=== PATIENT | male | born 1955 | race Caucasian/White ===

== ENCOUNTER → 2019-10-01 15:10 | Outpatient (CLI) | payer MEDICARE, MEDICAID, SELFPAY ==
[2019-10-02 12:24] LABS: Basophils # 0.1 K/mm3 (0-0.2); Basophils % 0.6 % (0.1-2.0); Eosinophils # 0.1 K/mm3 (0.0-0.4); Eosinophils % 0.9 % (0.1-12.0); Hematocrit 49.1 % (42.0-52.0); Lymphocytes # 4.1 K/mm3 (0.7-4.5); Lymphocytes % 51.5 % (10-50); Mean Corpuscular HGB Conc 32.5 g/dL (31.8-35.4); Mean Corpuscular Hemoglobin 33.1 pg (27.0-31.2); Mean Corpuscular Volume 102.1 fl (80-94); Mean Platelet Volume 11.1 fl (7.4-10.4); Monocytes # 0.4 K/mm3 (0.1-1.0); Monocytes % 5.6 % (1.7-9.3); Neutrophils # 3.3 K/mm3 (1.8-7.8); Neutrophils % 41.5 % (37.0-80.0); Platelet Count 133 K/mm3 (142-424); Red Blood Count 4.81 M/mm3 (4.60-6.20); Red Cell Distribution Width 14.3 % (11.5-17.5); White Blood Count 7.9 K/mm3 (4.8-10.8)
[2019-10-02 12:30] LABS: MANUAL DIFFERENTIAL MANUAL DIFFERENTIAL (MANUAL DIFF)
[2019-10-02 12:40] LABS: Chol/HDL Ratio 7.1 (1-3.5); Cholesterol 234 mg/dl (140-200); HDL Cholesterol 33 mg/dl (40-60)
[2019-10-02 12:47] LABS: Triglycerides 619 mg/dl (30-150)
[2019-10-02 12:50] LABS: Direct LDL Cholesterol 112.28 mg/dL (100-129)
[2019-10-02 18:05] LABS: Eosinophils % 1 % (0-3); Lymphocytes % 58 % (10-50); Monocytes % 8 % (2-9); Neutrophils % 33 % (42-76); Total Cells Counted 100
[2019-10-02 18:06] LABS: Macrocytosis 1+; Platelet Estimate Slight Decrease
== END ==
PROVIDERS: Visit Provider Family Medicine
DX: E11.9 Type 2 diabetes mellitus without complications (principal); Z79.84 Long term (current) use of oral hypoglycemic drugs
CPT/HCPCS: 80061; 85007; 85025

== ENCOUNTER → 2020-01-18 13:20 | Outpatient (CLI) | payer MEDICARE, MEDICAID, SELFPAY ==
[2020-01-18 14:50] LABS: Basophils % 0.5 % (0.1-2.0); Eosinophils # 0.1 K/mm3 (0.0-0.4); Eosinophils % 1.5 % (0.1-12.0); Hematocrit 44.3 % (42.0-52.0); Hemoglobin 13.9 g/dL (14.1-18.0); Lymphocytes # 2.8 K/mm3 (0.7-4.5); Lymphocytes % 43.1 % (10-50); Mean Corpuscular HGB Conc 31.5 g/dL (31.8-35.4); Mean Corpuscular Hemoglobin 31.7 pg (27.0-31.2); Mean Corpuscular Volume 100.7 fl (80-94); Mean Platelet Volume 10.2 fl (7.4-10.4); Monocytes # 0.3 K/mm3 (0.1-1.0); Monocytes % 5.2 % (1.7-9.3); Neutrophils # 3.2 K/mm3 (1.8-7.8); Neutrophils % 49.7 % (37.0-80.0); Platelet Count 149 K/mm3 (142-424); Red Cell Distribution Width 13.9 % (11.5-17.5); White Blood Count 6.4 K/mm3 (4.8-10.8)
[2020-01-18 14:57] LABS: Alanine Aminotransferase 71 U/L (12-78); Albumin Level 4.6 g/dl (3.5-5.0); Albumin/Globulin Ratio 1.5 (1.1-1.8); Alkaline Phosphatase 81 U/L (38-126); Anion Gap 14.3 mEq/L (5-15); Aspartate Amino Transferase 82 U/L (17-59); Bilirubin,Total 0.5 mg/dl (0.2-1.3); Blood Urea Nitrogen 15 mg/dl (9-20); Calcium 9.8 mg/dl (8.4-10.2); Carbon Dioxide 30 mmol/L (22.0-30.0); Chloride 103 mmol/L (98-107); Chol/HDL Ratio 7.8 (1-3.5); Cholesterol 257 mg/dl (140-200); Estimated Glomerular Filt Rate 98 ml/min (>60); GFR (African American) 119 ML/MIN (>60); Globulin 3.1 g/dL (1.3-3.2); Glucose 155 mg/dl (74-100); HDL Cholesterol 33 mg/dl (40-60); Potassium 5.3 mmoL/L (3.5-5.1); Sodium 142 mmol/L (136-145); Total Protein,Serum 7.7 g/dl (6.3-8.2); Triglycerides 230 mg/dl (30-150); VLDL Cholesterol 46 mg/dL (0-40)
[2020-01-18 15:07] LABS: Direct LDL Cholesterol 170.21 mg/dL (100-129)
== END ==
PROVIDERS: Visit Provider Family Medicine
DX: E78.1 Pure hyperglyceridemia (principal); Z00.00 Encounter for general adult medical examination without abnormal findings
CPT/HCPCS: 80053; 80061; 85025

== ENCOUNTER → 2020-05-15 13:37 | Outpatient (CLI) | payer MEDICARE, MEDICAID, SELFPAY ==
[2020-05-15 13:55] LABS: Creatinine,Urine Random 71 mg/dL (Not Estab.)
[2020-05-15 13:58] LABS: Alanine Aminotransferase 55 U/L (12-78); Albumin Level 5.1 g/dl (3.5-5.0); Albumin/Globulin Ratio 1.6 (1.1-1.8); Alkaline Phosphatase 57 U/L (38-126); Anion Gap 14.7 mEq/L (5-15); Aspartate Amino Transferase 62 U/L (17-59); Bilirubin,Total 0.8 mg/dl (0.2-1.3); Blood Urea Nitrogen 13 mg/dl (9-20); Calcium 10.4 mg/dl (8.4-10.2); Carbon Dioxide 24 mmol/L (22.0-30.0); Chloride 105 mmol/L (98-107); Chol/HDL Ratio 4.7 (1-3.5); Cholesterol 175 mg/dl (140-200); Estimated Glomerular Filt Rate 114 ml/min (>60); GFR (African American) 138 ML/MIN (>60); Globulin 3.1 g/dL (1.3-3.2); Glucose 151 mg/dl (74-100); HDL Cholesterol 37 mg/dl (40-60); Potassium 4.7 mmoL/L (3.5-5.1); Sodium 139 mmol/L (136-145); Total Protein,Serum 8.2 g/dl (6.3-8.2); Triglycerides 203 mg/dl (30-150); VLDL Cholesterol 41 mg/dL (0-40)
[2020-05-15 14:05] LABS: Basophils % 0.7 % (0.1-2.0); Eosinophils # 0.1 K/mm3 (0.0-0.4); Eosinophils % 1.2 % (0.1-12.0); Hematocrit 46.4 % (42.0-52.0); Hemoglobin 15.2 g/dL (14.1-18.0); Lymphocytes # 3.2 K/mm3 (0.7-4.5); Lymphocytes % 51.1 % (10-50); Mean Corpuscular HGB Conc 32.7 g/dL (31.8-35.4); Mean Corpuscular Hemoglobin 31.7 pg (27.0-31.2); Mean Corpuscular Volume 96.9 fl (80-94); Mean Platelet Volume 9.9 fl (7.4-10.4); Monocytes # 0.3 K/mm3 (0.1-1.0); Monocytes % 5.3 % (1.7-9.3); Neutrophils # 2.6 K/mm3 (1.8-7.8); Neutrophils % 41.8 % (37.0-80.0); Platelet Count 167 K/mm3 (142-424); Red Blood Count 4.79 M/mm3 (4.60-6.20); White Blood Count 6.3 K/mm3 (4.8-10.8)
[2020-05-15 14:08] LABS: Microalbumin < 6.000 mg/L (0-16.7)
[2020-05-15 14:12] LABS: MANUAL DIFFERENTIAL MANUAL DIFFERENTIAL (MANUAL DIFF)
[2020-05-15 14:17] LABS: T4 (Thyroxine) 9.4 ug/dl (5.53-11.0)
[2020-05-15 14:29] LABS: Thyroid Stimulating Hormone 1.17 uIU/mL (0.465-4.68)
[2020-05-15 14:44] LABS: Hemoglobin A1C 7.6 % (4.0-6.0)
[2020-05-15 14:46] LABS: Eosinophils % 3 % (0-3); Lymphocytes % 51 % (10-50); Monocytes % 6 % (2-9); Neutrophils % 40 % (42-76); Nucleated Red Blood Cells 1; Platelet Estimate Normal; RBC Morphology Normal; Total Cells Counted 100
== END ==
PROVIDERS: Visit Provider Family Medicine
DX: E11.9 Type 2 diabetes mellitus without complications (principal); E78.1 Pure hyperglyceridemia; Z12.5 Encounter for screening for malignant neoplasm of prostate; J44.9 Chronic obstructive pulmonary disease, unspecified; Z79.84 Long term (current) use of oral hypoglycemic drugs
CPT/HCPCS: 80053; 80061; 82043; 82570; 83036; 84436; 84443; 85007; 85025; G0103

== ENCOUNTER → 2020-12-03 11:34 | Outpatient (CLI) | payer MEDICARE, SELFPAY ==
[2020-12-04 11:12] LABS: PSA, Free 1.36 ng/mL; Prostate Specific Ag 8.3 ng/mL (0.0-4.0)
== END ==
PROVIDERS: Visit Provider Urology
DX: R97.20 Elevated prostate specific antigen [PSA] (principal)
CPT/HCPCS: 36415; 84153; 84154

== ENCOUNTER → 2021-01-16 13:31 | Outpatient (CLI) | payer MEDICARE, SELFPAY ==
[2021-01-16 13:38] LABS: Basophils % 0.6 % (0.1-2.0); Eosinophils # 0.1 K/mm3 (0.0-0.4); Eosinophils % 0.8 % (0.1-12.0); Hematocrit 44.4 % (42.0-52.0); Hemoglobin 14.5 g/dL (14.1-18.0); Lymphocytes # 3.3 K/mm3 (0.7-4.5); Lymphocytes % 45.8 % (10-50); Mean Corpuscular HGB Conc 32.7 g/dL (31.8-35.4); Mean Corpuscular Hemoglobin 31.8 pg (27.0-31.2); Mean Corpuscular Volume 97.4 fl (80-94); Mean Platelet Volume 9.1 fl (7.4-10.4); Monocytes # 0.4 K/mm3 (0.1-1.0); Monocytes % 5.4 % (1.7-9.3); Neutrophils # 3.4 K/mm3 (1.8-7.8); Neutrophils % 47.4 % (37.0-80.0); Platelet Count 154 K/mm3 (142-424); Red Blood Count 4.56 M/mm3 (4.60-6.20); Red Cell Distribution Width 13.4 % (11.5-17.5); White Blood Count 7.3 K/mm3 (4.8-10.8)
[2021-01-16 13:43] LABS: Alanine Aminotransferase 51 U/L (12-78); Albumin Level 4.5 g/dl (3.5-5.0); Albumin/Globulin Ratio 1.5 (1.1-1.8); Alkaline Phosphatase 47 U/L (38-126); Anion Gap 13.3 mEq/L (5-15); Aspartate Amino Transferase 66 U/L (17-59); Bilirubin,Total 0.7 mg/dl (0.2-1.3); Blood Urea Nitrogen 11 mg/dl (9-20); Calcium 9.7 mg/dl (8.4-10.2); Carbon Dioxide 30 mmol/L (22.0-30.0); Chloride 103 mmol/L (98-107); Chol/HDL Ratio 4.1 (1-3.5); Cholesterol 162 mg/dl (140-200); Estimated Glomerular Filt Rate 136 ml/min (>60); GFR (African American) 165 ML/MIN (>60); Glucose 159 mg/dl (74-100); HDL Cholesterol 40 mg/dl (40-60); Potassium 4.3 mmoL/L (3.5-5.1); Sodium 142 mmol/L (136-145); Total Protein,Serum 7.5 g/dl (6.3-8.2); Triglycerides 216 mg/dl (30-150); VLDL Cholesterol 43 mg/dL (0-40)
[2021-01-16 13:47] LABS: Hemoglobin A1C 8.7 % (4.0-6.0)
[2021-01-16 13:53] LABS: Direct LDL Cholesterol 84.52 mg/dL (100-129)
== END ==
PROVIDERS: Visit Provider Family Medicine
DX: E11.9 Type 2 diabetes mellitus without complications (principal); E78.1 Pure hyperglyceridemia; I10 Essential (primary) hypertension; K21.9 Gastro-esophageal reflux disease without esophagitis; Z79.84 Long term (current) use of oral hypoglycemic drugs
CPT/HCPCS: 80053; 80061; 83036; 85025

== ENCOUNTER → 2021-02-12 09:04 | Outpatient (POV) | payer MEDICARE, MEDICAID, SELFPAY ==
[2021-02-12 09:42] VITALS: BP 165/95; PULSE 63; RESP 18; O2SAT 95; BMI 37.6
--- NOTE | 2021-02-12 10:07 | HMH.PMCON ---
Assessment and Plan (1) Low back pain Status: Acute Category: Medical Code(s): M54.50 - Low back pain, unspecified (2) Lumbar radiculopathy Status: Acute Category: Medical Code(s): M54.16 - Radiculopathy, lumbar region - Assessment and plan all Dx Assessment and Plan for all problems:: Patient is a 65-year-old new consultation by Dr. Hsu. He is having pain in his left low back area with radiation into left buttock, left hip, left groin and left leg. He is having paresthesia into the left lower extremity. Patient is not having any changes in bowel or bladder habit. He denies saddle anesthesia. Patient is positive for Bijal's test today and is tender to palpation to his left hip. He has tried oral steroids and got no relief. He has tried Rupert, Percocet, and tramadol which he does take chronically. He has not gotten any significant relief. We did discuss undergoing a left SI injection along with a left trochanteric bursa injection but the patient feels he would rather proceed with imaging before proceeding with injective therapy. He was ordered physical therapy but unable to tolerate therapy due to significant pain. He is in visible pain today with any type of movement. He is using ice and heat therapies. He is not getting relief. He is attempting home stretching but it is limited due to significant pain. The patient does have a pacemaker and is on Eliquis. As result he is unable to take anti-inflammatories. We will order a CT scan of the patient's left hip and low back area. We will follow-up with the patient after the imaging to discuss further plan of care. We did discuss a low-dose of muscle relaxers. We will see if this helps with the pain until he is able to undergo imaging. We will order Vistaril 25 mg 1 tablet p.o. x145 minutes prior to CT scan. We will also order the patient tizanidine 2 mg 1 tablet p.o. twice daily as needed for muscle spasms. He does report to be having spasms in his left low back area and into left buttock. We will follow-up with the patient after we receive his imaging to discuss a further plan of care. He will continue with home stretching. Patient has been instructed to contact the clinic with any concerns before the next appointment. Dr. Alvarenga has reviewed this note and agrees with this plan of care. This note was dictated using voice recognition software and make contain errors or omissions. HPI - Data of Consult Patient: new to practice Consult date: 02/12/21 Requesting Physician: Kristin Owens APRN - Consult Narrative Reason for consult: Low back pain, left hip pain History of present illness: Mr. Lala is a 65 year old male who presents today for consultation for left low back pain with radiation into left buttock, left hip, left groin and left leg. The patient reports the pain has been ongoing for the last 4 to 5 weeks. The pain has progressively worsened. He denies any traumas, falls, or accidents that would have initiated the pain. He describes the pain as throbbing and constant in nature. The pain is made worse with movement of his left lower extremity. He does report raising his foot from the floor worsens the pain as well. He is unable to sleep more than an hour to hour and a half each night because of having the need to place his foot back on the ground to get relief. He does have needlelike sensation in the lower aspect of his left leg. He says that the leg is also numb intermittently. He denies any saddle anesthesia or any changes in bowel or bladder habit. He is on Eliquis and is unable to take anti-inflammatories. He has tried home stretching with limited relief. He was scheduled for physical therapy but unable to tolerate therapy due to significant pain. He is now using 2 canes for ambulation. He says that he feels as though his leg is going to give out . He does have a history of spinal stenosis with out treatment. He has not had injective therapy or
== END ==
PROVIDERS: Visit Provider Clinical Nurse Specialist Family Health
DX: M54.50 Low back pain, unspecified (principal); M54.16 Radiculopathy, lumbar region
CPT/HCPCS: 99202; G0463

== ENCOUNTER → 2021-02-23 07:59 | Outpatient (CLI) | payer MEDICARE, MEDICAID, SELFPAY ==
--- NOTE | 2021-02-23 08:06 | CT_ITS ---
PROCEDURE: CT LUMBAR SPINE WO CON CLINICAL HISTORY: LT HIP PAIN,LOW BACK PAIN COMPARISON: No exams were available for comparison TECHNIQUE: Axial images obtained with sagittal and coronal reformats. All CT scans at the facility use one or more dose reduction, viz: automated exposure control, ma/kV adjustment per patient size (including targeted exams where dose is matched to indication, i.e. head), or iterative reconstruction technique. FINDINGS: Normal alignment. No acute fracture or dislocation. No lytic or blastic change. Mild degenerative disc disease T11-T12 and T12-L1. Mild concentric bulging disc at T11-T12. The L1-L2: Minimal concentric bulging disc. L2-L3: Mild concentric bulging disc with a left lateral broad-based disc osteophyte complex. Facet and ligamentum hypertrophic change with mild bilateral lateral recess and foraminal narrowing. L3-L4: Concentric bulging disc with facet and ligamentum hypertrophic change with mild bilateral foraminal narrowing. L4-5: Concentric bulging disc with a broad-based right paracentral foraminal and lateral disc protrusion. There is facet and ligamentum hypertrophy with bilateral lateral recess narrowing right greater than left and moderate right-sided foraminal narrowing. Borderline canal stenosis. Increased soft tissue density is present in the left neural foramen. This could be related to an extruded disc herniation or a nerve sheath lesion/tumor. This area measures approximately 14 by 8 mm. Suggest MRI for further evaluation without and with contrast if patient is MRI compatible. L5-S1: Mild bulging disc slightly eccentric to the right with right lateral recess narrowing. Mild facet and ligamentum hypertrophic change. Bony bridging involves the right SI joint with minimal bony bridging of the left SI joint inferiorly. The prostate is enlarged at 6 by 5.5 cm. IMPRESSION: 1. Abnormal CT of the lumbar spine with multilevel lumbar spondylosis. Please see above for detailed description at each level. 2. L2-L3: Mild concentric bulging disc with a left lateral broad-based disc osteophyte complex. Facet and ligamentum hypertrophic change with mild bilateral lateral recess and foraminal narrowing. 3. L3-L4: Concentric bulging disc with facet and ligamentum hypertrophic change with mild bilateral foraminal narrowing. 4. L4-5: Concentric bulging disc with a broad-based right paracentral foraminal and lateral disc protrusion. There is facet and ligamentum hypertrophy with bilateral lateral recess narrowing right greater than left and moderate right-sided foraminal narrowing. Borderline canal stenosis. Increased soft tissue density is present in the left neural foramen. This could be related to an extruded disc herniation or a nerve sheath lesion/tumor. This area measures approximately 14 by 8 mm. Suggest MRI for further evaluation without and with contrast if patient is MRI compatible. If patient is not MRI compatible then CT scan of the lumbar spine with contrast would be recommended. 5. L5-S1: Mild bulging disc slightly eccentric to the right with right lateral recess narrowing. Mild facet and ligamentum hypertrophic change. 6. Enlarged prostate 7. 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
--- NOTE | 2021-02-23 08:22 | XR_ITS ---
PROCEDURE: XR HIP LT 2-3V W/PELVIS CLINICAL INDICATION: LT HIP PAIN COMPARISON: No exams were available for comparison FINDINGS: No fracture or dislocation is evident. No significant degenerative change. No lytic or blastic change. Unremarkable soft tissues. IMPRESSION: No acute findings. Dictated by: Rivera Quinonez MD 02/23/2021 11:54 Rivera Quinonez MD in [facility] 02/23/2021 11:54
== END ==
PROVIDERS: PCP Family Medicine; Visit Provider Clinical Nurse Specialist Family Health
DX: M54.50 Low back pain, unspecified (principal); M25.552 Pain in left hip
CPT/HCPCS: 72131; 73502

== ENCOUNTER → 2021-02-26 10:44 | Outpatient (POV) | payer MEDICARE, MEDICAID, SELFPAY ==
[2021-02-26 10:59] VITALS: BP 110/78; PULSE 77; RESP 18; O2SAT 96; BMI 37.2
--- NOTE | 2021-02-26 11:13 | HMH.PAINSOAP ---
[facility] Pain Management SOAP Note Subjective:: Patient is a 65-year-old white male who presents today for follow-up. Patient was referred to us by Dr. Hsu. He was seen in our clinic on 02/12/2021. Patient is having pain in his left low back area with radiation into left buttock, left hip, left groin and left leg. He is having paresthesia into the left lower extremity, but without changes in bowel or bladder habit. He is not having any saddle anesthesia. He is now having to ambulate with 2 canes. He is having difficulty standing, walking, sitting. Any type of movement worsens the patient's pain. He does have a pacemaker and is on Eliquis. He is unable to take anti-inflammatories. We did schedule the patient for CT scan of his lumbar spine. He is here today to review the results. He does rate his pain a 10 out of 10 today. He does report to be having muscle spasms in his low back as well. He describes his pain as throbbing and constant in nature along with dull aching as well. Review of Systems General: No recent weight changes, no fever, no sleep disturbances Respiratory: No cough, no shortness of air, no recurring pulmonary infections Cardiovascular/peripheral vascular: No chest pain, no palpitations, no edema, no shortness of breath Gastrointestinal: No new onset incontinence, normal bowel movements reported Genitourinary: No new onset incontinence Musculoskeletal: Low back pain with radiation into lower extremity with numbness and tingling Psychiatric: [Normal mood/affect] Neurological: [Denies weakness in extremities], [denies balance issues] Objective:: Physical exam General: Alert and oriented x3, no acute distress, pleasant and cooperative Lungs: Respirations even and unlabored, symmetrical chest expansion Eyes: PERRL Musculoskeletal: Flexion and extension of lumbar [spine] somewhat guarded secondary to pain, [antalgic gait noted] Neurological: Speech clear, no gross sensory deficit Assessment:: Degenerative disc disease lumbar spine with lumbar radiculopathy symptoms, herniated disc Plan:: Patient I did review his CT scan today. Per the MRI report, the patient does have questionable extruded disc herniation or nerve sheath lesion/tumor . Patient does have broad-based right para central foraminal and lateral disc protrusion at the L4-L5 area as well. The CT scan does suggest MRI for further evaluation with and without contrast. It was also recommended if patient is unable to undergo MRI a CT with contrast be performed. The patient says that he does not feel he will be able to undergo a repeat CT scan. He has deferred on imaging at this time. He has been advised that this is likely needed for the neurosurgeon further evaluation, but he is not able to undergo the exam due to pain. He has tried tramadol, Rupert, and oxycodone with no relief. He does say that muscle relaxants have helped him to rest though has not relieved the pain. We discussed ordering Flexeril 10 mg 1 tablet p.o. 3 times daily as needed for muscle spasms until he is able to see a neurosurgeon. He would like a referral. We will refer the patient to [facility] neurosurgery department for further evaluation. Again he has deferred on the CT scan with contrast. We will will see the patient back after his evaluation with neurosurgery. Patient has been instructed to contact the clinic with any concerns before the next appointment. Dr. Alvarenga has reviewed this note and agrees with this plan of care. This note was dictated using voice recognition software and make contain errors or omissions. [facility] History I have reviewed the patient's past medical history: Yes Medical History: Reports:: Diabetes Mellitus Type 2, Hyperlipidemia, Hypertension, Internal Pacemaker *Have you ever received a pneumonia vaccine?: Yes *Have you received a flu vaccine this season?: No Other Medical History: Reports: Arthritis Other Surgeries: Yes: No Previous Surgery, C
== END ==
PROVIDERS: Visit Provider Clinical Nurse Specialist Family Health
DX: M51.16 Intervertebral disc disorders with radiculopathy, lumbar region (principal); M51.26 Other intervertebral disc displacement, lumbar region
CPT/HCPCS: 99212; G0463

== ENCOUNTER 2021-03-16 08:09 | Day surgery (SDC) | payer MEDICARE, MEDICAID, SELFPAY ==
[2021-03-16 08:23] LABS: Coronavirus 19, PCR Not Detected (NotDetected); Influenza A, PCR Not Detected (NotDetected); Influenza B, PCR Not Detected (NotDetected)
[2021-03-16 08:48] VITALS: BP 124/80; PULSE 70; RESP 18; TEMP 36.1; O2SAT 94; BMI 37.9
[2021-03-16 09:45] VITALS: BP 143/91; PULSE 76; RESP 18; TEMP 36.3; O2SAT 94
--- NOTE | 2021-03-16 16:06 | HMH.OPNOTE ---
Date of procedure: 03/16/21 Pre-op Diagnosis:: Urinary retention Post-op Diagnosis:: BPH with obstruction Procedure performed:: Flexible cystoscopy Surgeon:: Lele Larry MD Anesthesia: local Estimated blood loss (mL): 0 Clinical Note:: 65-year-old white male with history of BPH with 2 episodes of urinary retention presents for cystoscopic evaluation. Operative findings:: Trilobar hyperplasia was present. There was some bullous edema at the base of the bladder due to the Moreira catheter balloon. Moderate trabeculation was present. No significant median lobe was noted. Operative note:: Patient taken to the cystoscopy suite after informed consent was obtained. His indwelling Moreira catheter was removed. On the stretcher he was prepped and draped in the standard surgical fashion and 2% lidocaine placed into the urethra and the urethra clamped. After 5 minutes the flexible cystoscope introduced into the urethral meatus in the past to the prostatic urethra which showed by lobar hyperplasia. The bladder was entered and examined in a systematic fashion. There was some moderate trabeculation present and some bullous edema along the floor of the bladder due to his recent Moreira. No significant median lobe was noted. The ureteral orifices were in their normal anatomic position with clear efflux of urine. Prostatic length was measured around 2-1/2 cm?. Scope removed patient tolerated procedure well. We discussed the findings today with the patient and his . We discussed UroLift as a surgical solution. Patient is currently on blood thinners and he is to talk to his private branch exchange repairer to see if he can go off the blood thinners prior to his procedure and for a week after his procedure. Condition: stable Disposition: same day Specimens:: None Complications:: None
[2022-01-07 10:55] LABS: POC Glucose,Bedside 193 (70-110)
== END 2021-03-16 10:00 | disposition home or self-care (01) ==
PROVIDERS: PCP Family Medicine; Visit Provider Urology
DX: N40.1 Benign prostatic hyperplasia with lower urinary tract symptoms (principal); R33.8 Other retention of urine; K21.9 Gastro-esophageal reflux disease without esophagitis; E78.1 Pure hyperglyceridemia; I10 Essential (primary) hypertension; Z88.6 Allergy status to analgesic agent; Z79.899 Other long term (current) drug therapy
CPT/HCPCS: 52000; 82962; C9803; U0003; U0005

== ENCOUNTER 2021-03-23 08:43 | Day surgery (SDC) | payer MEDICARE, MEDICAID, SELFPAY ==
[2021-03-17 11:13] VITALS: BMI 37.9
[2021-03-23 09:04] LABS: Coronavirus 19, PCR Not Detected (NotDetected); Influenza A, PCR Not Detected (NotDetected); Influenza B, PCR Not Detected (NotDetected); MANUAL DIFFERENTIAL MANUAL DIFFERENTIAL (MANUAL DIFF)
[2021-03-23 09:23] LABS: Basophils % 0.5 % (0.1-2.0); Eosinophils # 0.2 K/mm3 (0.0-0.4); Hematocrit 47.5 % (42.0-52.0); Hemoglobin 15.9 g/dL (14.1-18.0); Lymphocytes # 2.8 K/mm3 (0.7-4.5); Lymphocytes % 34.5 % (10-50); Mean Corpuscular HGB Conc 33.4 g/dL (31.8-35.4); Mean Corpuscular Hemoglobin 31.6 pg (27.0-31.2); Mean Corpuscular Volume 94.5 fl (80-94); Mean Platelet Volume 8.3 fl (7.4-10.4); Monocytes # 0.4 K/mm3 (0.1-1.0); Monocytes % 4.3 % (1.7-9.3); Neutrophils # 4.7 K/mm3 (1.8-7.8); Neutrophils % 58.7 % (37.0-80.0); Platelet Count 200 K/mm3 (142-424); Red Blood Count 5.03 M/mm3 (4.60-6.20); Red Cell Distribution Width 13.1 % (11.5-17.5); White Blood Count 8.1 K/mm3 (4.8-10.8)
[2021-03-23 09:26] LABS: Chloride 100 mmol/L (98-107); Potassium 5.9 mmoL/L (3.5-5.1); Sodium 139 mmol/L (136-145)
[2021-03-23 09:29] LABS: Anion Gap 12.9 mEq/L (5-15); Blood Urea Nitrogen 12 mg/dl (9-20); Carbon Dioxide 32 mmol/L (22.0-30.0); Creatinine Clearance Estimated 125 mL/min (50-200); Estimated Glomerular Filt Rate 98 ml/min (>60); GFR (African American) 118 ML/MIN (>60)
[2021-03-23 09:30] LABS: Calcium 10.3 mg/dl (8.4-10.2); Glucose 227 mg/dl (74-100)
[2021-03-23 09:52] LABS: Eosinophils % 5 % (0-3); Lymphocytes % 41 % (10-50); Monocytes % 8 % (2-9); Neutrophils % 46 % (42-76); Total Cells Counted 100
[2021-03-23 09:53] LABS: Platelet Estimate Normal; RBC Morphology Normal
[2021-03-23 10:11] VITALS: BP 139/95; PULSE 96; RESP 20; TEMP 36.2; O2SAT 99
--- NOTE | 2021-03-23 11:16 | P.PN_ITS ---
[facility] Anesthesia Checklist - Patient Identification Patient Identification: Arm Band - Structural Data Admitted From: Home Planned Operative Procedure/s: Urolift Consent for Planned Operative Procedure(s) Verified: Yes - NPO Status Verified Time NPO: 00:00 - Additional verifications Anesthesia Reactions: No Hx Blood Transfusions: No Blood Transfusion Reaction: No - Airway Assessment C-Spine Mobility Assessed: Yes TMJ Mobility Assessed: Yes Dentition: Poor Dentition - Neurological Assessment Level of Consciousness: Awake Hx Seizures: No Numbness or tingling in extremities: No - Anesthesia Plan Anesthesia Risk discussed: Yes Anesthesia Plan: Verified ASA Class: III Anesthesia Type: Local & MAC [facility] History I have reviewed the patient's past medical history: Yes Medical History: Reports:: Diabetes Mellitus Type 2, Hyperlipidemia, Hypertension, Internal Pacemaker Denies:: Cancer, Diabetes Mellitus Type 1, MRSA, Seizures *Have you ever received a pneumonia vaccine?: No *Have you received a flu vaccine this season?: No Other Medical History: Reports: Arthritis, Other (Pacemaker). Denies: Blood Transfusion Reaction Anesthesia experience/problems:: None Other Surgeries: Yes: No Previous Surgery, Cholecystectomy, Colonoscopy, Pacemaker Amputation: No Fractures: No - *Social History Last grade of school completed: 9th or 10th Smoking Status: Never smoker Alcohol Intake: never Substance Use Type: denies use *Occupational Status:: disabled Housing: house Household Members: spouse *Travel in the last 8 weeks: None Family Hx:: Unable to obtain
[2021-03-23 12:13] VITALS: BP 93/45; PULSE 78; RESP 16; TEMP 36.4; O2SAT 96
[2021-03-23 12:28] VITALS: BP 91/48; PULSE 72; RESP 16; O2SAT 100
[2021-03-23 12:43] VITALS: BP 121/70; PULSE 73; RESP 18; O2SAT 100
[2021-03-23 13:13] VITALS: BP 118/66; PULSE 74; RESP 16; O2SAT 100
--- NOTE | 2021-03-23 14:41 | HMH.OPNOTE ---
Date of procedure: 03/23/21 Pre-op Diagnosis:: BPH with obstruction Post-op Diagnosis:: BPH with obstruction Procedure performed:: UroLift x6 implants Surgeon:: Lele Larry MD CREATIVE WRITING TEACHER:: America Brewster Anesthesia: MAC Estimated blood loss (mL): 0 Clinical Note:: 65-year-old white male with urinary retention secondary to BPH. Cystoscopy has been performed and he is a good candidate for UroLift. We have discussed treatment options and he presents for UroLift procedure today. Operative findings:: Cystoscopy revealed moderate trabeculation of the bladder. No significant median lobe was noted but his bladder neck was quite high. Prostatic urethra showed bilobar hyperplasia and was 3 cm in length. Operative note:: Patient taken to the operating room after informed consent was obtained. Placed on the operating table and monitored anesthesia care was administered. Sequential compression devices were placed and IV antibiotics were given. He was then placed into the dorsal lithotomy position and prepped and draped in the standard surgical fashion. He had an indwelling Moreira catheter that was removed prior to prepping and draping. The 20 Cameroonian UroLift cystoscope was passed into the urethra and into the prostatic urethra which showed a long prostatic urethra and trilobar hyperplasia and a high bladder neck. The bladder was entered and examined in a systematic fashion. There was moderate trabeculation of the bladder. No mucosal normalities were noted. No significant median lobe was present. We then removed the obturator passed*UroLift device over the cystoscope passed back into the bladder and pulled the scope back to about 1/2 cm from the bladder neck and at the 9 o'clock position and the UroLift implant was placed successfully. Same technique was used on the left side and 1/2 cm from the bladder neck and at 9:00 with a second implant. Third implant was placed at the mid prostate at about the 10 o'clock position with success and a fourth implant was then placed on the patient's left side in a similar fashion as to the third 1. We then removed the cystoscope device and look back in with our obturator there remained some coaptation of the prostate more inferiorly near the floor and the fifth and sixth UroLift implant was placed about 2-1/2 cm from the bladder neck and around the 8:00 and 4 o'clock position. This resulted in nice coaptation from the. Up to the bladder neck. The scope then removed and a 20 Cameroonian Moreira catheter was placed without difficulty. Patient tolerated well discharged to recovery in stable condition. Condition: stable Disposition: same day Specimens:: None Complications:: None
[2022-01-07 10:55] LABS: POC Glucose,Bedside 188 (70-110)
== END 2021-03-23 13:20 | disposition home or self-care (01) ==
PROVIDERS: PCP Family Medicine; Visit Provider Urology
DX: N40.1 Benign prostatic hyperplasia with lower urinary tract symptoms (principal); R33.8 Other retention of urine; R97.20 Elevated prostate specific antigen [PSA]; E11.9 Type 2 diabetes mellitus without complications; E78.5 Hyperlipidemia, unspecified; I10 Essential (primary) hypertension; Z95.0 Presence of cardiac pacemaker; K21.9 Gastro-esophageal reflux disease without esophagitis; Z88.6 Allergy status to analgesic agent; Z79.84 Long term (current) use of oral hypoglycemic drugs; Z79.899 Other long term (current) drug therapy
CPT/HCPCS: C9740; 36415; 80048; 82962; 85007; 85014; 85018; 85048; 85049; 96374; C9803; L8699; U0003; U0005

== ENCOUNTER → 2021-10-20 12:16 | Outpatient (CLI) | payer MEDICARE, MEDICAID, SELFPAY ==
[2021-10-21 09:36] LABS: PSA, Free 0.87 ng/mL; Prostate Specific Ag 6.5 ng/mL (0.0-4.0)
== END ==
PROVIDERS: PCP Family Medicine; Visit Provider Urology
DX: R97.20 Elevated prostate specific antigen [PSA] (principal)
CPT/HCPCS: 36415; 84153; 84154

== ENCOUNTER → 2021-11-04 06:21 | Outpatient (CLI) | payer MEDICARE, MEDICAID, SELFPAY ==
[2021-11-03 20:31] LABS: Hemoglobin A1C 13.9 % (4.0-6.0)
== END ==
PROVIDERS: PCP Family Medicine; Visit Provider Family Medicine
DX: E11.9 Type 2 diabetes mellitus without complications (principal); Z79.84 Long term (current) use of oral hypoglycemic drugs
CPT/HCPCS: 83036

== ENCOUNTER → 2022-03-29 09:00 | Outpatient (CLI) | payer MEDICARE, MEDICAID, SELFPAY ==
[2022-03-29 13:54] LABS: Alanine Aminotransferase 49 U/L (12-78); Albumin Level 4.5 g/dl (3.5-5.0); Albumin/Globulin Ratio 1.4 (1.1-1.8); Alkaline Phosphatase 77 U/L (38-126); Anion Gap 20.8 mEq/L (5-15); Aspartate Amino Transferase 96 U/L (17-59); Bilirubin,Total 0.7 mg/dl (0.2-1.3); Blood Urea Nitrogen 18 mg/dl (9-20); Calcium 9.9 mg/dl (8.4-10.2); Carbon Dioxide 20 mmol/L (22.0-30.0); Chloride 102 mmol/L (98-107); Estimated Glomerular Filt Rate 75 ml/min (>60); GFR (African American) 91 ML/MIN (>60); Globulin 3.3 g/dL (1.3-3.2); Glucose 212 mg/dl (74-100); Potassium 4.8 mmoL/L (3.5-5.1); Sodium 138 mmol/L (136-145); Total Protein,Serum 7.8 g/dl (6.3-8.2)
[2022-03-29 14:08] LABS: Hemoglobin A1C 9.3 % (4.0-6.0)
[2022-03-29 14:25] LABS: Prostate Specific Ag Screen 13.6 ng/ml (0.0-4.0)
== END ==
PROVIDERS: PCP Family Medicine; Visit Provider Family Medicine
DX: E11.9 Type 2 diabetes mellitus without complications (principal); Z12.5 Encounter for screening for malignant neoplasm of prostate; E78.1 Pure hyperglyceridemia; Z79.84 Long term (current) use of oral hypoglycemic drugs
CPT/HCPCS: 80053; 83036; G0103

== ENCOUNTER → 2022-09-20 23:48 | Outpatient (CLI) | payer MEDICARE, MEDICAID, SELFPAY ==
[2022-09-20 19:20] LABS: Basophils % 0.4 % (0.1-2.0); Eosinophils # 0.1 K/mm3 (0.0-0.4); Eosinophils % 0.9 % (0.1-12.0); Hematocrit 46.2 % (42.0-52.0); Hemoglobin 14.5 g/dL (14.1-18.0); Lymphocytes # 2.5 K/mm3 (0.7-4.5); Lymphocytes % 32.6 % (10-50); Mean Corpuscular HGB Conc 31.3 g/dL (31.8-35.4); Mean Corpuscular Hemoglobin 30.6 pg (27.0-31.2); Mean Corpuscular Volume 97.6 fl (80-94); Mean Platelet Volume 10.4 fl (7.4-10.4); Monocytes # 0.4 K/mm3 (0.1-1.0); Monocytes % 5.1 % (1.7-9.3); Neutrophils # 4.6 K/mm3 (1.8-7.8); Platelet Count 175 K/mm3 (142-424); Red Blood Count 4.73 M/mm3 (4.60-6.20); Red Cell Distribution Width 14.4 % (11.5-17.5); White Blood Count 7.5 K/mm3 (4.8-10.8)
[2022-09-20 19:34] LABS: Alanine Aminotransferase 61 U/L (12-78); Albumin Level 4.6 g/dl (3.5-5.0); Albumin/Globulin Ratio 1.5 (1.1-1.8); Alkaline Phosphatase 53 U/L (38-126); Anion Gap 16.5 mEq/L (5-15); Aspartate Amino Transferase 89 U/L (17-59); Bilirubin,Total 0.7 mg/dl (0.2-1.3); Blood Urea Nitrogen 10 mg/dl (9-20); Calcium 8.9 mg/dl (8.4-10.2); Carbon Dioxide 26 mmol/L (22.0-30.0); Chloride 102 mmol/L (98-107); Chol/HDL Ratio 5.7 (1-3.5); Cholesterol 165 mg/dl (140-200); Estimated Glomerular Filt Rate 97 ml/min (>60); GFR (African American) 117 ML/MIN (>60); Glucose 167 mg/dl (74-100); HDL Cholesterol 29 mg/dl (40-60); Potassium 4.5 mmoL/L (3.5-5.1); Sodium 140 mmol/L (136-145); Total Protein,Serum 7.6 g/dl (6.3-8.2); Triglycerides 394 mg/dl (30-150); VLDL Cholesterol 79 mg/dL (0-40)
[2022-09-20 19:45] LABS: Direct LDL Cholesterol 73.99 mg/dL (100-129)
[2022-09-20 20:02] LABS: Hemoglobin A1C 7.9 % (4.0-6.0)
== END ==
PROVIDERS: PCP Family Medicine; Visit Provider Family Medicine
DX: I10 Essential (primary) hypertension (principal); R21 Rash and other nonspecific skin eruption; Z76.0 Encounter for issue of repeat prescription; E11.9 Type 2 diabetes mellitus without complications; Z79.84 Long term (current) use of oral hypoglycemic drugs
CPT/HCPCS: 80053; 80061; 83036; 85025

== ENCOUNTER → 2023-02-07 07:57 | Outpatient (CLI) | payer MEDICARE, MEDICAID, SELFPAY ==
[2023-02-07 21:13] LABS: Alanine Aminotransferase 55 U/L (12-78); Albumin Level 4.4 g/dl (3.5-5.0); Albumin/Globulin Ratio 1.6 (1.1-1.8); Alkaline Phosphatase 47 U/L (38-126); Anion Gap 15.5 mEq/L (5-15); Aspartate Amino Transferase 61 U/L (17-59); Bilirubin,Total 0.6 mg/dl (0.2-1.3); Blood Urea Nitrogen 13 mg/dl (9-20); Calcium 9.1 mg/dl (8.4-10.2); Carbon Dioxide 22 mmol/L (22.0-30.0); Chloride 106 mmol/L (98-107); Chol/HDL Ratio 5.8 (1-3.5); Cholesterol 157 mg/dl (140-200); Estimated Glomerular Filt Rate 85 ml/min (>60); GFR (African American) 102 ML/MIN (>60); Globulin 2.8 g/dL (1.3-3.2); Glucose 131 mg/dl (74-100); HDL Cholesterol 27 mg/dl (40-60); Lipase 261 U/L (23-300); Potassium 4.5 mmoL/L (3.5-5.1); Sodium 139 mmol/L (136-145); Total Protein,Serum 7.2 g/dl (6.3-8.2); Triglycerides 253 mg/dl (30-150); VLDL Cholesterol 51 mg/dL (0-40)
[2023-02-07 21:24] LABS: Direct LDL Cholesterol 87.24 mg/dL (100-129)
[2023-02-07 21:36] LABS: Basophils % 0.5 % (0.1-2.0); Eosinophils % 0.6 % (0.1-12.0); Hematocrit 39.7 % (42.0-52.0); Hemoglobin 13.4 g/dL (14.1-18.0); Lymphocytes # 1.6 K/mm3 (0.7-4.5); Lymphocytes % 24.5 % (10-50); Mean Corpuscular HGB Conc 33.7 g/dL (31.8-35.4); Mean Corpuscular Hemoglobin 32.8 pg (27.0-31.2); Mean Corpuscular Volume 97.4 fl (80-94); Mean Platelet Volume 10.8 fl (7.4-10.4); Monocytes # 0.4 K/mm3 (0.1-1.0); Monocytes % 6.6 % (1.7-9.3); Neutrophils # 4.3 K/mm3 (1.8-7.8); Neutrophils % 67.9 % (37.0-80.0); Platelet Count 139 K/mm3 (142-424); Red Blood Count 4.07 M/mm3 (4.60-6.20); White Blood Count 6.3 K/mm3 (4.8-10.8)
[2023-02-07 22:51] LABS: Hemoglobin A1C 7.4 % (4.0-6.0)
== END ==
PROVIDERS: PCP Family Medicine; Visit Provider Family Medicine
DX: I10 Essential (primary) hypertension (principal); E11.9 Type 2 diabetes mellitus without complications; Z79.84 Long term (current) use of oral hypoglycemic drugs; R10.9 Unspecified abdominal pain; Z79.899 Other long term (current) drug therapy
CPT/HCPCS: 80053; 80061; 83036; 83690; 85025

== ENCOUNTER 2023-08-10 09:13 | Outpatient (CLI) | payer MEDICARE, SELFPAY ==
[2023-08-10 19:18] LABS: Basophils % 0.4 % (0.1-2.0); Eosinophils # 0.1 K/mm3 (0.0-0.4); Eosinophils % 1.1 % (0.1-12.0); Hematocrit 34.9 % (42.0-52.0); Hemoglobin 13.5 g/dL (14.1-18.0); Lymphocytes # 2.2 K/mm3 (0.7-4.5); Lymphocytes % 34.3 % (10-50); Mean Corpuscular HGB Conc 38.6 g/dL (31.8-35.4); Mean Corpuscular Hemoglobin 37.1 pg (27.0-31.2); Monocytes # 0.3 K/mm3 (0.1-1.0); Neutrophils # 3.8 K/mm3 (1.8-7.8); Neutrophils % 60.1 % (37.0-80.0); Platelet Count 147 K/mm3 (142-424); Red Blood Count 3.64 M/mm3 (4.60-6.20); Red Cell Distribution Width 14.7 % (11.5-17.5); White Blood Count 6.4 K/mm3 (4.8-10.8)
[2023-08-10 19:30] LABS: Alanine Aminotransferase 46 U/L (12-78); Albumin Level 4.2 g/dl (3.5-5.0); Albumin/Globulin Ratio 1.4 (1.1-1.8); Alkaline Phosphatase 49 U/L (38-126); Anion Gap 14.3 mEq/L (5-15); Aspartate Amino Transferase 65 U/L (17-59); Bilirubin,Total 0.7 mg/dl (0.2-1.3); Blood Urea Nitrogen 15 mg/dl (9-20); Calcium 9.5 mg/dl (8.4-10.2); Carbon Dioxide 23 mmol/L (22.0-30.0); Chloride 106 mmol/L (98-107); Chol/HDL Ratio 5.2 (1-3.5); Cholesterol 170 mg/dl (140-200); Estimated Glomerular Filt Rate 75 ml/min (>60); GFR (African American) 91 ML/MIN (>60); Globulin 2.9 g/dL (1.3-3.2); Glucose 153 mg/dl (74-100); HDL Cholesterol 33 mg/dl (40-60); Potassium 4.3 mmoL/L (3.5-5.1); Sodium 139 mmol/L (136-145); Total Protein,Serum 7.1 g/dl (6.3-8.2); Triglycerides 265 mg/dl (30-150); VLDL Cholesterol 53 mg/dL (0-40)
[2023-08-10 19:41] LABS: Direct LDL Cholesterol 95.36 mg/dL (100-129)
[2023-08-10 20:01] LABS: Prostate Specific Ag Screen 31.7 ng/ml (0.0-4.0)
[2023-08-10 20:26] LABS: Hemoglobin A1C 9.3 % (4.0-6.0)
== END 2023-08-10 23:59 | disposition home or self-care (01) ==
LOC: LAB.DROPOF 08-11 09:14
PROVIDERS: PCP Family Medicine; Visit Provider Family Medicine
DX: I10 Essential (primary) hypertension (principal); R97.20 Elevated prostate specific antigen [PSA]; Z12.5 Encounter for screening for malignant neoplasm of prostate; Z79.899 Other long term (current) drug therapy; E11.9 Type 2 diabetes mellitus without complications; Z79.84 Long term (current) use of oral hypoglycemic drugs; Z79.85 Long-term (current) use of injectable non-insulin antidiabetic drugs; Z87.891 Personal history of nicotine dependence
CPT/HCPCS: 80053; 80061; 80162; 83036; 85025; G0103

== ENCOUNTER 2023-10-28 18:47 | Outpatient (CLI) | payer MEDICARE, SELFPAY ==
[2023-10-28 19:42] LABS: Chloride 109 mmol/L (98-107)
[2023-10-28 19:43] LABS: Potassium 4.6 mmoL/L (3.5-5.1); Sodium 140 mmol/L (136-145)
[2023-10-28 19:45] LABS: Alanine Aminotransferase 33 U/L (12-78); Albumin/Globulin Ratio 1.3 (1.1-1.8); Alkaline Phosphatase 62 U/L (38-126); Anion Gap 13.6 mEq/L (5-15); Aspartate Amino Transferase 41 U/L (17-59); Bilirubin,Total 0.4 mg/dl (0.2-1.3); Blood Urea Nitrogen 19 mg/dl (9-20); Carbon Dioxide 22 mmol/L (22.0-30.0); Estimated Glomerular Filt Rate 61 ml/min (>60); GFR (African American) 73 ML/MIN (>60); Globulin 3.1 g/dL (1.3-3.2); Total Protein,Serum 7.1 g/dl (6.3-8.2)
[2023-10-28 19:46] LABS: Calcium 9.8 mg/dl (8.4-10.2); Glucose 158 mg/dl (74-100)
[2023-10-28 20:10] LABS: Hemoglobin A1C 7.3 % (4.0-6.0)
== END 2023-10-28 23:59 | disposition home or self-care (01) ==
LOC: LAB.DROPOF 18:49
PROVIDERS: PCP Family Medicine; Visit Provider Family Medicine
DX: R97.20 Elevated prostate specific antigen [PSA] (principal); E78.1 Pure hyperglyceridemia; N40.1 Benign prostatic hyperplasia with lower urinary tract symptoms; R35.0 Frequency of micturition; E11.9 Type 2 diabetes mellitus without complications; I10 Essential (primary) hypertension; Z12.5 Encounter for screening for malignant neoplasm of prostate
CPT/HCPCS: 80053; 83036

== ENCOUNTER 2024-10-22 15:40 | Outpatient (CLI) | payer MEDICARE, SELFPAY ==
[2024-10-22 18:35] LABS: Hematocrit 30.1 % (42.0-52.0); Hemoglobin 9.3 g/dL (14.1-18.0); Immature Granulocytes % 0.4 %; Mean Corpuscular HGB Conc 30.9 g/dL (31.8-35.4); Mean Corpuscular Hemoglobin 27.9 pg (27.0-31.2); Mean Corpuscular Volume 90.4 fl (80-94); Nucleated Red Blood Cells % 0 %; Platelet Count 164 K/mm3 (142-424); Red Blood Count 3.33 M/mm3 (4.60-6.20); Red Cell Distribution Width-SD 63.7 fL; White Blood Count 5.2 K/mm3 (4.8-10.8)
[2024-10-22 18:59] LABS: D-Dimer 0.80 ug/mL (0.0-0.5)
[2024-10-22 19:37] LABS: Alanine Aminotransferase 18 U/L (12-78); Albumin Level 3.8 g/dl (3.5-5.0); Albumin/Globulin Ratio 1.3 (1.1-1.8); Alkaline Phosphatase 59 U/L (38-126); Anion Gap 18.4 mEq/L (5-15); Aspartate Amino Transferase 40 U/L (17-59); Bilirubin,Total 0.4 mg/dl (0.2-1.3); Blood Urea Nitrogen 18 mg/dl (9-20); Calcium 9.2 mg/dl (8.4-10.2); Carbon Dioxide 18 mmol/L (22.0-30.0); Chloride 105 mmol/L (98-107); Creatinine,Serum 0.90 mg/dl (0.66-1.25); Estimated Glomerular Filt Rate 84 ml/min (>60); GFR (African American) 102 ML/MIN (>60); Globulin 2.9 g/dL (1.3-3.2); Glucose 117 mg/dl (74-100); Potassium 4.4 mmoL/L (3.5-5.1); Sodium 137 mmol/L (136-145); Total Protein,Serum 6.7 g/dl (6.3-8.2)
[2024-10-22 22:21] LABS: Hemoglobin A1C 6.9 % (4.0-6.0)
--- OUTSIDE RECORDS SUMMARY | 2024-10-23 09:49 | XMS_ITS | Clinical Summary ---
Author Organization Healthcare Address [address] [place] [address] Care Team Providers Care Clinical Research Spec Name Role Phone Unavailable Primary Care Provider Unavailabl e Social History Tobacco Use Types Packs/Day Years Used Date Smoking Tobacco: Never Assessed Sex and Gender Information Value Date Recorded Sex Assigned at Not on file Legal Sex Male 9:51 AM EST Gender Identity Not on file Sexual Orientation Not on file Plan of Treatment Not on file
--- OUTSIDE RECORDS SUMMARY | 2024-10-23 09:49 | XMS_ITS | Encounter Summary ---
Author Organization [place] [address] Care Team Providers Care Assembler Unit Name Role Phone Flakito Hsu MD Primary Care Provider [phone] Encounter Details Date Type Department Care Team (Late st Contact Info) Description 09/25/2014 Orders Only [facility] [address] [facility] [address] [place] [id number] Irving Monte MD [address] [id number] Social History Tobacco Use Types Packs/Day Years Used Date Smoking Tobacco: Former Cigarettes Q uit: 04/02/2014 Smokeless Tobacco: Never Comments:quit 2013 Alcohol Use Standard Drinks/Week Comments No 0 (1 standard drink = 0.6 oz pur e alcohol) Sex and Gender Information Value Date Recorded Sex Assigned at Not on file Legal Sex Male 12:30 AM EDT Gender Identity Not on file Sexual Orientation Not on file documented as of this encounter Functional Status * Is the person deaf or does he/she have serious difficulty hearing? Answer Date of Assessment Author No 09/06/2014 3:24 PM EDT Anjelica Rogers RN * Is the person blind or does he/she have serious difficulty seeing even when wearing glasses? Answer Date of Assessment Author No 09/06/2014 3:24 PM EDT Anjelica Rogers RN * Does this person have serious difficulty walking or climbing stairs? Answer Date of Assessment Author No 09/06/2014 3:24 PM EDT Timothy-Ildefonso n, Anjelica L., RN * Does this person have difficulty dressing or bathing? Answer Date of Assessment Author No 09/06/2014 3:24 PM EDT Anjelica Rogers RN * Because of a physical, mental or emotional condition, does this person have difficulty doing errands alone such as visiting a doctor's office or shopping? Answer Date of Assessment Author No 09/06/2014 3:24 PM EDT Anjelica Rogers RN documented as of this encounter Mental Status * Because of a physical, mental or emotional condition, does this person have serious difficulty concentrating, remembering or making decisions? Answer Entry Date Author No 09/06/2014 3:24 PM EDT Anjelica Rogers RN documented in this encounter Plan of Treatment Not on file documented as of this encounter Procedures Procedure Name Priority Date/Time Associated Diagnosis Comments PACEART REPORT Routine 09/25/2014 3:54 PM EDT documented in this encounter Results * PACEART REPORT (09/25/2014 3:54 PM EDT) 09/25/2014 3:54 PM EDT us Irving Monte MD [facility] Final Result Performing Organization Address City/State/[facility] Co de Phone Number [facility] [address] [place] [address] documented in this encounter Visit Diagnoses Not on filedocumented in this encounter Care Teams Assembler Unit Relationship Specialty Start Date End Date Flakito Hsu MD PCP - General Family Medicine 09/03/14 documented as of this encounter
--- OUTSIDE RECORDS SUMMARY | 2024-10-23 09:49 | XMS_ITS | Encounter Summary ---
Author Organization Healthcare Address [address] [id number] Care Team Providers Care Wildlife Refuge Manager Name Role Phone Unavailable Primary Care Provider Unavailabl e Encounter Details Date Type Department Care Team (Late st Contact Info) Description 02/15/2024 Community Orders [facility] [address] [place] [address] Flakito Hsu MD [address] [place] [address] Social History Tobacco Use Types Packs/Day Years Used Date Smoking Tobacco: Never Assessed Sex and Gender Information Value Date Recorded Sex Assigned at Not on file Legal Sex Male 9:51 AM EST Gender Identity Not on file Sexual Orientation Not on file documented as of this encounter Plan of Treatment Not on file documented as of this encounter Visit Diagnoses Not on filedocumented in this encounter
--- OUTSIDE RECORDS SUMMARY | 2024-10-23 09:49 | XMS_ITS | Encounter Summary ---
Author Organization [place] [address] Care Team Providers Care Body Engineer Name Role Phone Flakito Hsu MD Primary Care Provider [phone] Encounter Details Date Type Department Care Team (Late st Contact Info) Description 09/04/2014 Orders Only [facility] [address] [facility] [address] [place] [phone] Irving Monte MD [address] [place] [id number] Social History Tobacco Use Types Packs/Day Years [...] as of this encounter Functional Status * Cognitive and Functional Status Question Answer Date of Assessment Author Is the person deaf or does he/she have serious difficulty hearing? No 09/06/2014 3:24 PM EDT Anjelica Clemons RN Is the person blind or does he/she have serious difficulty seeing even when wearing glasses? No 09/06/2014 3:24 PM EDT Anjelica Clemons RN Does this person have seriou s difficulty walking or climbing stairs? No 09/06/2014 3:24 PM EDT Anjelica Clemons RN Does this person have difficulty dressing or bathing? No 09/06/2014 3:24 PM EDT Anjelica Clemons RN documented as of this encounter Mental Status * Cognitive and Functional Status Question Answer Entry Date Author Because of a physical, menta l or emotional condition, does this person have difficulty doing errands alone such as visiting a doctor's office or shopping? No 09/06/2014 3:24 PM EDT Anjelica Clemons RN Because of a physical, menta l or emotional condition, does this person have serious difficulty concentrating, remembering or making decisions? No 09/06/2014 3:24 PM EDT Anjelica Clemons RN documented in this encounter Plan of Treatment Not on file documented as of this encounter Procedures Procedure Name Priority Date/Time Associated Diagnosis Comments ELECTROPHYSIOLOGY OR IMPLANT PROCEDURE LOG Routine 09/04/2014 12:27 PM EDT documented in this encounter Results * ELECTROPHYSIOLOGY OR IMPLANT PROCEDURE LOG (09/04/2014 12:27 PM EDT) 09/04/2014 12:2 7 PM EDT us Irving Monte MD CARDIAC CATH ORDERABLES Final Result Performing Organization Address City/State/[facility] [place] [address] documented in this encounter Visit Diagnoses Not on filedocumented in this encounter Care Teams Body Engineer Relationship Specialty Start Date End Date Flakito Hsu MD PCP - General Family Medicine 09/03/14 documented as of this encounter
--- OUTSIDE RECORDS SUMMARY | 2024-10-23 09:49 | XMS_ITS | Encounter Summary ---
Author Organization [place] [address] Care Team Providers Care Casino Enforcement Agent Name Role Phone Flakito Hsu MD Primary Care Provider [phone] Encounter Details Date Type Department Care Team (Late st Contact Info) Description 09/25/2014 Orders Only [facility] Edg [address] [facility] [address] [place] [phone] Irving Monte MD [address] [id number] Social History Tobacco Use Types Packs/Day Years [...] Procedure Name Priority Date/Time Associated Diagnosis Comments EP LAB RECORDINGS Routine 09/25/2014 7:57 AM EDT documented in this encounter Results * ELECTROPHYSIOLOGY LAB RECORDINGS (09/25/2014 7:57 AM EDT) 09/25/2014 7:57 AM EDT us Irving Monte MD CARDIAC CATH ORDERABLES Final Result Performing Organization Address City/State/[facility] Co de Phone Number [facility] [address] [place] [address] documented in this encounter Visit Diagnoses Not on filedocumented in this encounter Care Teams Casino Enforcement Agent Relationship Specialty Start Date End Date Flakito Hsu MD PCP - General Family Medicine 09/03/14 documented as of this encounter
--- OUTSIDE RECORDS SUMMARY | 2024-10-23 09:49 | XMS_ITS | Encounter Summary ---
Author Organization [place] [address] Care Team Providers Care Rod Buster Helper Name Role Phone Flakito Hsu MD Primary Care Provider [phone] Encounter Details Date Type Department Care Team (Late st Contact Info) Description 09/04/2014 Orders Only [facility] Edg [address] [facility] [address] [place] [phone] Irving Monte MD [address] [phone] Social History Tobacco Use Types Packs/Day Years [...] bathing? No 09/06/2014 3:24 PM EDT Anjelica Clemons, RN documented as of this encounter Mental [...] Date/Time Associated Diagnosis Comments PACEART REPORT Routine 09/04/2014 5:33 PM EDT documented in this encounter Results * PACEART REPORT (09/04/2014 5:33 PM EDT) 09/04/2014 5:33 PM EDT Narrative [facility] - 09/04/2014 1:35 PM EDT Explant device and leads due to infection us Irving Monte MD [facility] CARDIAC CATH ORDERAB LES Final Result Performing Organization Address City/State/[facility] Co de Phone Number [facility] [address] [place] [address] documented in this encounter Visit Diagnoses Not on filedocumented in this encounter Care Teams Rod Buster Helper Relationship Specialty Start Date End Date Flakito Hsu MD PCP - General Family Medicine 09/03/14 documented as of this encounter
--- OUTSIDE RECORDS SUMMARY | 2024-10-23 09:50 | XMS_ITS | Clinical Summary ---
Author Organization [facility] Address [address] [facility] [place] [address] Phone Care Team Providers Care Special Programs Director Name Role Phone Flakito Hsu MD Primary Care Provider [phone] Allergies Active Allergy Reactions Criticality Noted Date Comments Ibuprofen Nausea Only,Nausea And Vomiting High 10/10 Naproxen Nausea Only High 11/03/2021 Medications albuterol (PROVENTIL) 2.5 mg /3 mL (0.083 %) Inhl Solution for Nebulization Take 2.5 mg by nebulization 3 times daily as needed for Wheezing. Active fUROsemide (LASIX) 20 mg Oral Tablet Take 20 mg by mouth daily. Active Omeprazole 20 mg Oral Tablet, Delayed Release (E.C.)Indications: pathological gastric acid hypersecretory condition Take 20 mg by mouth daily. Indications: PATHOLOGICAL GASTRIC HYPERSECRETORY CONDITION Active traMADol (ULTRAM) 50 mg Oral Tablet Take 50 mg by mouth 3 times daily as needed for Pain (1-2 tabs po TID prn). Active potassium chloride (MICRO-K) 10 mEq Oral Capsule, Sustained Release Take 10 mEq by mouth daily. Active apixaban (ELIQUIS) 5 mg Oral Tablet Take 5 mg by mouth 2 times daily. Active carvedilol (COREG) 25 mg Oral Tablet Take 25 mg by mouth 2 times daily. Active finasteride (PROSCAR) 5 mg Oral Tablet Take 5 mg by mouth daily. Active losartan (COZAAR) 25 mg Oral Tablet Take 50 mg by mouth daily. Active metFORMIN (GLUCOPHAGE) 500 mg Oral Tablet Take 1,000 mg by mouth 2 times daily. Active lactulose (CHRONULAC) 10 gram/15 mL (15 mL) Oral Solution Take 45 mL every day by oral route. Active lactulose (CHRONULAC) 10 gram/15 mL Oral Solution TAKE 30 ML BY MOUTH TWICE DAILY 02/02/20 24 Active cyclobenzaprine (FLEXERIL) 10 mg Oral Tablet TAKE 1 TABLET BY MOUTH THREE TIMES DAILY FOR MUSCLE SPASMS OR TIGHTNESS 05/18/19 Active apixaban (ELIQUIS) 5 mg Oral Tablet Take 5 mg by mouth. 05/18/19 Active morphine (MS CONTIN) 15 mg Oral Tablet Sustained Release Take 15 mg by mouth every 12 hours. Started for cancer and treatments--prost rate cancer Active darolutamide (NUBEQA) 300 mg Oral Tablet Take 600 mg by mouth 2 times daily. Active empagliflozin (JARDIANCE) 10 mg Oral Tablet Take 10 mg by mouth daily. Active Active Problems Patient Care Coordination No te Formatting of this note migh t be different from the original. pacemaker followed elsewhere Problem Noted Date Diagnosed Date Pacemaker battery depletion 05/23/2024 Pacemaker 02/21/2024 Overview (08/01/2024): Dc dual ppm gen change 07/19/[address] Monte Abdominal pain 09/04/2014 Overview (09/06/2014): GI consulted. ABD CT (09/05/14) Mildly enlarged prostate No acute abdominal disease. Abd US (09/05/14) The only finding is difficulty in penetrating the liver suggesting a nonspecific infiltrative process of the liver. Fatty infiltration is a possibility here. Symptomatic bradycardia Overview (09/30/2014): 09/25/2014 S/P Successful Typical Flutter RF Ablation and Successful Right Sided Dual Chamber PPM (Dr. Monte) 09/04/2014 S/P PPM extraction due to infection (Dr. Monte) 07/2014 S/P lead revision (Dr. Moise) 05/2014 S/P SJM dual pacemaker implant (Dr. Moise) HLD (hyperlipidemia) Anxiety HTN (hypertension) CAD (coronary artery disease) COPD (chronic obstructive pulmonary disease) Atrial fibrillation Osteoarthritis GERD (gastroesophageal reflux disease) Atrial flutter Tachy-minerva syndrome Sinus node dysfunction Overview (06/09/2018): S/P SJM dual chamber PPM implant Resolved Problems Problem Noted Date Diagnosed Date Resolved Date Pacemaker complications 09/04/201410/11 Overview (09/05/2014): PPM extracted 09/04/14 Blood Cx (09/04/14) NGTD. Wound Cx (09/04/14) pending. Encounters Date Type Department Care Team Description 08/24/2024 Orders Only [facility] [address] [facility] [address] [place] [address] Irving Monte MD Vector Remote Device 08/02/2024 1:30 PM EDT Office Visit [facility] [address] [facility] [address] [place] [address] Marimar Mills MA Sinus node dysfunction (HCC) (Primary Dx); Pacemaker; Paroxysmal atrial fibrillation (HCC); Adjustment and management of cardiac pacemaker; Visit for wound check from Last 3 Months Surgical History Surgery Date Site/Laterality Comments LIP REPAIR CARDIAC CATHETERIZATION 05/12/2014 no stents COLONOSCOPY 04/11/2008 OTHER SURGICAL HISTORY 09/04/2014 [facility]AM Dual PPM Extraction-Dr. Monte ELECTROPHYSIOLOGY PROCEDURE 09/25/2014 N/A Right RIGHT SIDE [facility] DUAL CHAMBER PACEMAKER IMPLANT WITH EP STUDY 3D MAPING CTI & A-FLUTTER ABLATION (ANESTHESIA/ LABS ON ARRIVAL); Surgeon: Irving Monte MD; Location: [facility]; Service: Cardiac Medical devices from this surgery are in the Medical Devices section. ELECTROPHYSIOLOGY PROCEDURE 09/25/2014 N/A Right Surgeon: Irving Monte MD; Location: [facility]; Service: Cardiac Medical devices from this surgery are in the Medical Devices section. CARDIAC SURGERY Medical History Medical History Date Comments Symptomatic bradycardia HLD (hyperlipidemia) Anxiety HTN (hypertension) CAD (coronary artery disease) Pulmonary embolism (HCC) COPD (chronic obstructive pulmonary disease) (HC C) Syncope Dizziness Lethargy Atrial fibrillation (HCC) Osteoarthritis GERD (gastroesophageal reflux disease) Diabetes mellitus (HCC) Atrial flutter (HCC) Tachy-minerva syndrome (HCC) Sinus node dysfunction (HCC) Pacemaker Sleep apnea Cancer (HCC) Family History Medical History Relation Name Comments Diabetes Mother Diabetes Sister Relation Name Status Comments Father Mother Alive Sister Social History Tobacco Use Types Packs/Day Years Used Date Smoking Tobacco: Light Smoker Cigarettes 0.3 54.5 Started: 1968 Smokeless Tobacco: Never Tobacco Cessation:Ready to Q uit: Not Asked; Counseling Given: Not Answered Comments:4 per day currently Alcohol Use Standard Drinks/Week Comments No 0 (1 standard drink = 0.6 oz pur e alcohol) Sex and Gender Information Value Date Recorded Sex Assigned at Not on file Legal Sex Male 12:30 AM EDT Gender Identity Not on file Sexual Orientation Not on file Obstetrics History Last Filed Vital Signs Vital Sign Reading Time Taken Comments Blood Pressure 103/67 07/19/2024 11:45 AM EDT Pulse 65 07/19/2024 11:45 AM EDT Temperature 36.9 C (98.4 F) 08/02/2024 2:00 PM EDT Respiratory Rate 14 07/19/2024 11:4 5 AM EDT Oxygen Saturation 94% 07/19/2024 11: 45 AM EDT Inhaled Oxygen Concentration - - Weight 90.2 kg (198 lb 12.8 oz) 07/19/2024 8:32 AM EDT Height 175.3 cm (5' 9 ) 07/19/2024 8:32 AM EDT Body Mass Index 29.36 07/19/2024 8:32 AM EDT Plan of Treatment Health Maintenance Due Date Last Done Comments Wellness Exam Medicare 1958 Hepatitis C Screening 08/17/1975 Cologuard 2002 FIT 2002 Sigmoidoscopy 2002 Virtual Colonography 2002 RSV or 60+ (1 - Risk 60-74 years 1-dose series) 2017 AAA Screening 2022 Zoster (2 of 2) 12/22/2022 10/27/2022 COVID-19 Vaccine ( season) 2023 03/24/2023, 11/18/2020, 10/07/2020 Colon Cancer Screening 08/14/2024 Colonoscopy 08/14/2024 08/14/2014 (Not Entered), 08/14/2014 (Postponed) Influenza Vaccine (#1) 2024 3, 03/29/2022, 01/18/2020, Additional history exists DTaP/TDaP/Td (2 - Td or Tdap) 09/21/2026 09/21/2016 Pneumococcal Vaccine 50+ Completed 10/27/2022, 09/09 Hepatitis B Vaccine Aged Out No longe r eligible based on patient's age to complete this topic Meningococcal B Vaccine Aged Out No l onger eligible based on patient's age to complete this topic Medical Devices Implanted Type Area Research Associate Device Identifier Shelf Expiration Date Model / Serial / Lot Lead Tendril Sdx Bipolar Ventricular Screw-In Steroid Elutin - [id number] Implanted:Qty: 1 on 09/25/2014 by Irving Monte MD at [facility] Lead [facility] MED:CARDIAC RHYM MGMT [id number]/58 / [id number] / Lead Tendril Sdx Bipolar Ventricular Screw-In Steroid Elutin - [id number] Implanted:Qty: 1 on 09/25/2014 by Irving Monte MD at [facility] Lead [facility] MED:CARDIAC RHYM MGMT [id number]/52 / [id number] / Pacemaker Assurity Mri 2chmbr Impl [id number] 6mm Is-1 [facility] - [id number] Implanted:Qty: 1 on 07/19/2024 by Irving Monte MD at [facility] Pacemaker [facility] MED:DAIG DIV [id number] 11/08/2025 [id number] / [id number] / Envelope Tyrx Absb Antbtc Impl 2.9x3.3in Sgl-Marks Foil [facility] - [id number] Implanted:Qty: 1 on 07/19/2024 by Irving Monte MD at [facility] MEDTRONIC:PACING SYS [id number] 04/18/2025 [id number] / / [id number] Explanted Type Area Research Associate Device Identifier Shelf Expiration Date Model / Serial / Lot Pacemaker Endurity Dr - [id number] Implanted:Qty : 1 on 09/25/2014 by Irving Monte MD at [facility] Explanted:Qty : 1 on 07/19/2024 by Irving Monte MD at [facility] Pacemaker [facility] MED:CARDIAC RHYM MGMT [id number] / [id number] / Sjm Dual Pacemaker Implant Implanted:09/2014 by Rodney Moise MD (Quantity not on file) Explanted:Qty : 1 on 09/04/2014 by Irving Monte MD at [facility] DIRECTOR NICU [facility] [address] [id number] / [id number] / Procedures Procedure Name Priority Date/Time Associated Diagnosis Comments VECTOR REMOTE DEVICE Routine 08/24/2024 12:00 AM EDT Vector Remote Device PACEART REPORT Routine 08/02/2024 6:27 PM EDT from Last 3 Months Results * VECTOR REMOTE DEVICE (08/24/2024 12:00 AM EDT) 08/24/2024 Narrative [facility] - 08/24/2024 12:00 AM EDT New Implant, DOI: 07/19/2024. No episodes. Permanent AF. Patient on AC. Mode: VVIR. CREDIT RELATIONSHIP MANAGER: 15%. Ventricular AutoCapture pacing at high output mode (5.0V). Normal device function. ADDENDUM: Pt to be followed by Dr. Ennis. He has upcoming appt--kls us Irving Monte MD [facility] CARDIAC CATH ORDERAB LES Final Result [facility] [address] [id number] * PACEART REPORT (08/02/2024 6:27 PM EDT) 08/02/2024 6:27 PM EDT Narrative [facility] - 08/02/2024 2:38 PM EDT Joselo Kenneth Lala is here for a 2 week post gen change visit. Dc dc ppm 07/19/2024. Presenting egm demonstrates /VS 90s Underlying rhythm c/w afib/uncontrolled vent rates 60-120s Battery status 8.1-9.4 years (3.08V) Device function WNL. VVOR 60/130 Autocapture algorithm is on RV pacing 19% RA: 0.9 mV, 400 ohms RV: 6.8 mV, 1.5V@1ms, 410 ohms Atrial arrhythmias: permanent afib Ventricular arrhythmias: no VHR episodes Reprogramming at this visit: MSR increased to 130 bpm F/u via remote transmission every 3 months. Instructions provided to pt on initializing monitor Next appt in office: pt will f/u with Dr. Ennis and see Dr. Monte on an as needed basis Report prepared by RHONDA Arcos us Irving Monte MD [facility] CARDIAC CATH ORDERAB LES Final Result [facility] [address] [place] [address] from Last 3 Months Insurance MEDICARE O MR [facility] MEDICARE O MR Advance Directives For more information, please contact: [phone] * Full Code (Latest Code Status on File) Date Activated Date Inactivated Comments 09/26/2014 8:44 AM 09/26/2014 4:47 PM * Full Code Date Activated Date Inactivated Comments 09/04/2014 9:08 AM 09/06/2014 10:55 PM Care Teams Special Programs Director Relationship Specialty Start Date End Date Flakito Hsu MD PCP - General Family Medicine 09/03/14
--- OUTSIDE RECORDS SUMMARY | 2024-10-23 09:50 | XMS_ITS | Encounter Summary ---
Author Organization [place] [address] Care Team Providers Care Marketing Project Coordinator Name Role Phone Flakito Hsu MD Primary Care Provider [phone] Encounter Details Date Type Department Care Team (Late st Contact Info) Description 08/24/2024 Orders Only [facility] [address] [facility] [address] [place] [address] Irving Monte MD [address] [place], [place] [phone] Vector Remote Device Social History Tobacco Use Types Packs/Day Years Used Date Smoking Tobacco: Light Smoker Cigarettes 0.3 54.5 Started: 1968 Smokeless Tobacco: Never Comments:4 per day currently Alcohol Use Standard [...] Rogers RN * Does this person have difficulty [...] 08/24/2024 12:00 AM EDT Vector Remote Device documented in this encounter Results * VECTOR REMOTE DEVICE (08/24/2024 12:00 AM EDT) 08/24/2024 Narrative [facility] - 08/24/2024 12:00 AM EDT New Implant, DOI: 07/19/2024. No episodes. Permanent AF. Patient on AC. Mode: VVIR. WOOD TURNING LATHE OPERATOR: 15%. Ventricular AutoCapture pacing at high output mode (5.0V). Normal device function. ADDENDUM: Pt to be followed by Dr. Ennis. He has upcoming appt--kls us Irving Monte MD [facility] CARDIAC CATH ORDERAB LES Final Result [facility] [address] [place] [address] documented in this encounter Visit Diagnoses Diagnosis Vector Remote Device documented in this encounter Additional Health Concerns Assessment Noted Time A fall risk assessment has been complete d for the patient 02/21/2024 3:41 PM EST documented as of this encounter Care Teams Marketing Project Coordinator Relationship Specialty Start Date End Date Flakito Hsu MD PCP - General Family Medicine 09/03/14 documented as of this encounter
== END 2024-10-22 23:59 | disposition home or self-care (01) ==
LOC: LAB.DROPOF 10-23 09:46
PROVIDERS: PCP Family Medicine; Visit Provider Family Medicine
DX: I82.409 Acute embolism and thrombosis of unspecified deep veins of unspecified lower extremity (principal); E11.9 Type 2 diabetes mellitus without complications; K74.60 Unspecified cirrhosis of liver; E78.1 Pure hyperglyceridemia; I10 Essential (primary) hypertension
CPT/HCPCS: 80053; 83036; 85025; 85378

== ENCOUNTER 2025-01-09 11:19 | Outpatient (CLI) | payer MEDICARE, SELFPAY ==
[2025-01-09 16:21] LABS: Hematocrit 37.5 % (42.0-52.0); Hemoglobin 11.7 g/dL (14.1-18.0); Immature Granulocytes % 0.2 %; Mean Corpuscular HGB Conc 31.2 g/dL (31.8-35.4); Mean Corpuscular Hemoglobin 28.1 pg (27.0-31.2); Mean Corpuscular Volume 90.1 fl (80-94); Nucleated Red Blood Cells % 0 %; Platelet Count 175 K/mm3 (142-424); Red Blood Count 4.16 M/mm3 (4.60-6.20); Red Cell Distribution Width-SD 54.4 fL; White Blood Count 4.8 K/mm3 (4.8-10.8)
[2025-01-09 17:17] LABS: Alanine Aminotransferase 21 U/L (12-78); Albumin Level 4.2 g/dl (3.5-5.0); Albumin/Globulin Ratio 1.6 (1.1-1.8); Alkaline Phosphatase 51 U/L (38-126); Anion Gap 15.8 mEq/L (5-15); Aspartate Amino Transferase 39 U/L (17-59); Bilirubin,Total 0.5 mg/dl (0.2-1.3); Blood Urea Nitrogen 13 mg/dl (9-20); Calcium 9.3 mg/dl (8.4-10.2); Carbon Dioxide 25 mmol/L (22.0-30.0); Chloride 103 mmol/L (98-107); Creatinine,Serum 1.10 mg/dl (0.66-1.25); Estimated Glomerular Filt Rate 67 ml/min (>60); GFR (African American) 81 ML/MIN (>60); Globulin 2.7 g/dL (1.3-3.2); Glucose 82 mg/dl (74-100); Potassium 4.8 mmoL/L (3.5-5.1); Sodium 139 mmol/L (136-145); Total Protein,Serum 6.9 g/dl (6.3-8.2)
[2025-01-09 18:42] LABS: Iron 58 ug/dL (49-181)
[2025-01-09 18:56] LABS: Total Iron Binding Capacity 430 ug/dL (261-462)
[2025-01-09 19:47] LABS: Hepatitis C Ab Qual. W/ RFX NEGATIVE (Negative)
--- OUTSIDE RECORDS SUMMARY | 2025-01-10 10:32 | XMS_ITS | Encounter Summary ---
Author Organization [place] [address] Care Team Providers Care Architecture Professor Name Role Phone Flakito Hsu MD Primary Care Provider [phone] Encounter Details Date Type Department Care Team (Late st Contact Info) Description 09/25/2014 Orders Only [facility] [address] [facility] [address] [place] [address] Irving Monte MD [address] [phone] Social History Tobacco Use Types Packs/Day Years [...] Author No 09/06/2014 3:24 PM EDT Anjelica Rogers, DANIELA * Because of a physical, mental or [...] 3:54 PM EDT us Irving Monte MD [facility] CARDIAC CATH ORDERAB LES Final Result Performing Organization Address City/State/[facility] Co de Phone Number [facility] [address] [place] [address] documented in this encounter Visit Diagnoses Not on filedocumented in this encounter Care Teams Architecture Professor Relationship Specialty Start Date End Date Flakito Hsu MD PCP - General Family Medicine 09/03/14 documented as of this encounter
--- OUTSIDE RECORDS SUMMARY | 2025-01-10 10:32 | XMS_ITS | Encounter Summary ---
Author Organization [place] [address] Care Team Providers Care Delivery Crew Worker Name Role Phone Flakito Hsu MD Primary Care Provider [phone] Encounter Details Date Type Department Care Team (Late st Contact Info) Description 09/25/2014 Orders Only [facility] [address] [facility] [address] [place] [address] Irving Monte MD [address] [place] [phone] Social History Tobacco Use Types Packs/Day Years [...] CATH ORDERABLES Final Result Performing Organization Address City/State[facility] Co de Phone Number [facility] [address] [place] [address] documented in this encounter Visit Diagnoses Not on filedocumented in this encounter Care Teams Delivery Crew Worker Relationship Specialty Start Date End Date Flakito Hsu MD PCP - General Family Medicine 09/03/14 documented as of this encounter
--- OUTSIDE RECORDS SUMMARY | 2025-01-10 10:32 | XMS_ITS | Clinical Summary ---
Author Organization [facility] Address [address] [place] [address] Care Team Providers Care Motor Coach Driver Name Role Phone Unavailable Primary Care Provider Unavailabl e Social History Tobacco Use Types Packs/Day Years Used Date Smoking Tobacco: Never Assessed Sex and Gender Information Value Date Recorded Sex Assigned at Not on file Legal Sex Male 10:38 AM EST Gender Identity Not on file Sexual Orientation Not on file Plan of Treatment Health Maintenance Due Date Last Done Comments Cologuard 1957 Colonoscopy 1957 Colorectal Cancer Screening 1957 FIT 1957 Lipid Screening 08/17/1975 Tetanus Vaccination (Every 10 Years) 08/17/1975 Hepatitis C Virus (HCV) Screening 1978 Pneumococcal Vaccine: 50+ Years (1 of 1 - PCV) 008 Zoster-RZV(Shingrix) (1 of 2) 08/17/2007 Fall Risk Assessment 2022 Advance Care Planning 04/11/2024 Depression Screening 04/11/2024 COVID-19 Vaccine ( - season) 2024 Influenza Vaccination (#1) 2024 RSV Vaccines (1 - 1-dose 75+ series) 2032
--- OUTSIDE RECORDS SUMMARY | 2025-01-10 10:32 | XMS_ITS | Clinical Summary ---
Author Organization [facility] Address [address] [place] [address] Care Team Providers Care Marketing And Outreach Coordinator Name Role Phone Unavailable Primary Care Provider [...]
--- OUTSIDE RECORDS SUMMARY | 2025-01-10 10:32 | XMS_ITS | Clinical Summary ---
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 Wound Cx (09/04/14) pending. Encounters Date Type Department Care Team Description 10/29/2024 1:05 PM EDT - 10/29/2024 11:59 PM EDT Hospital Encounter [facility] [address] [place] [address] [place] [address] Flakito Hsu MD Other specified soft tissue disorders Discharge Disposition: Home or Self Care from Last 3 Months Surgical History Surgery Date Site/Laterality Comments LIP REPAIR CARDIAC CATHETERIZATION 05/12/2014 no stents COLONOSCOPY 04/11/2008 OTHER SURGICAL HISTORY 09/04/2014 SJM Dual PPM Extraction-Dr. Monte ELECTROPHYSIOLOGY PROCEDURE 09/25/2014 N/A Right RIGHT SIDE [facility]ELLE DUAL CHAMBER PACEMAKER IMPLANT WITH EP STUDY 3D MAPING CTI & A-FLUTTER ABLATION (ANESTHESIA/ LABS ON ARRIVAL); Surgeon: Irving Monte MD; Location: [facility]; Service: Cardiac Medical devices from this surgery are in the Medical Devices section. ELECTROPHYSIOLOGY PROCEDURE 09/25/2014 N/A Right Surgeon: Irving Monte MD; Location: [facility]; Service: Cardiac Medical devices from this [...] Date Smoking Tobacco: Light Smoker Cigarettes 0.3 54.8 Started: 1970 Smokeless Tobacco: Never Tobacco Cessation:Ready [...] on file Sexual Orientation Not on file Last Filed Vital Signs Vital Sign Reading [...] 2022 Zoster (2 of 2) 12/22/2022 10/27/2022 Colon Cancer Screening 08/14/2024 Colonoscopy 08/14/2024 08/14/2014 (Not Entered), 08/14/2014 (Postponed) COVID-19 Vaccine ( season) 2024 03/24/2023, 11/18/2020, 10/07/2020 Influenza Vaccine (#1) 2024 , 03/29/2022, 01/18/2020, Additional history exists DTaP/TDaP/Td (2 - Td or Tdap) 09/21/2026 09/21/2016 Pneumococcal Vaccine 50+ Completed 10/27/2022, 09/09 Hepatitis B Vaccine Aged Out No longe r eligible based on patient's age to complete this topic Meningococcal B Vaccine Aged Out No l onger eligible based on patient's age to complete this topic Medical Devices Implanted Type Area Flatbed Owner Operator Device Identifier Shelf Expiration Date Model / Serial / Lot Lead Tendril Sdx Bipolar Ventricular Screw-In Steroid Elutin - [id number] Implanted:Qty: 1 on 09/25/2014 by Irving Monte MD at [facility] Lead [facility] ARI[facility] MED:CARDIAC RHYM MGMT 1688TC/58 / [id number] / Lead Tendril Sdx Bipolar Ventricular Screw-In Steroid Elutin - [id number] Implanted:Qty: 1 on 09/25/2014 by Irving Monte MD at [facility] Lead [facility]ELLE MED:CARDIAC RHYM MGMT 1688TC/52 / [id number] / Pacemaker Assurity Mri 2chmbr Impl [id number] 6mm Is-1 [facility] - [id number] Implanted:Qty: 1 on 07/19/2024 by Irving Monte MD at [facility] Pacemaker ARIELLE MED:DAIG DIV [id number] 11/08/2025 [id number] / [id number] / Envelope Tyrx Absb Antbtc Impl 2.9x3.3in Sgl-Marks Foil [facility] - [id number] Implanted:Qty: 1 on 07/19/2024 by Irving Monte MD at [facility] MEDTRONIC:PACING SYS [id number] 04/18/2025 [id number] / / [id number] Explanted Type Area Flatbed Owner Operator Device Identifier Shelf Expiration Date Model / Serial / Lot Pacemaker Endurity Dr - [id number] Implanted:Qty : 1 on 09/25/2014 by Irving Monte MD at [facility] Explanted:Qty : 1 on 07/19/2024 by Irving Monte MD at [facility] Pacemaker [facility] ARIELLE MED:CARDIAC RHYM MGMT [id number] / [id number] / Sjm Dual Pacemaker Implant Implanted:09/2014 by Rodney Moise MD (Quantity not on file) Explanted:Qty : 1 on 09/04/2014 by Irving Monte MD at [facility] 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 * No evidence of superficial thrombosis identified in the bilateral lower extremities. Narrative Procedure Note Hakeem James MD - 10/30/2024 IMPRESSION Conclusions * No evidence of deep vein thrombosis identified in the right lower extremity. * No evidence of superficial thrombosis identified in the bilaterallower extremities. Flakito Hsu MD IMG VASCULAR ORDERABLES Final Re sult from Last 3 Months Insurance [employer] MEDICARE HMO MR [employer] MEDICARE HMO MR [id number] [id number] Advance Directives For more information, please contact: [phone] * Full Code (Latest Code Status on File) Date Activated Date Inactivated Comments 09/26/2014 8:44 AM 09/26/2014 4:47 PM * Full Code Date Activated Date Inactivated Comments 09/04/2014 9:08 AM 09/06/2014 10:55 PM Care Teams Tin Assorter Relationship Specialty Start Date End Date Flakito Hsu MD PCP - General Family Medicine 09/03/14
--- OUTSIDE RECORDS SUMMARY | 2025-01-10 10:32 | XMS_ITS | Encounter Summary ---
Author Organization Healthcare Address [address] [id number] Care Team Providers Care Hand Tennis Ball Coverer Name Role Phone Unavailable Primary Care Provider Unavailabl e Encounter Details Date Type Department Care Team (Late st Contact Info) Description 02/15/2024 Community Orders Community Practice [address] [place] [address] Flakito Hsu MD [address] [place] [address] Social History Tobacco Use Types Packs/Day Years [...]
--- OUTSIDE RECORDS SUMMARY | 2025-01-10 10:32 | XMS_ITS | Encounter Summary ---
Author Organization [facility] [place] [address] Care Team Providers Care Network Specialist Name Role Phone Flakito Hsu MD Primary Care Provider [phone] Encounter Details Date Type Department Care Team (Late st Contact Info) Description 09/04/2014 Orders Only [facility] [address] [facility] [address] [place] [address] Irving Monte MD [address] [phone] Social History Tobacco Use Types Packs/Day Years [...] climbing stairs? No 09/06/2014 3:24 PM EDT Timothy-Scruggs, Anjelica L., RN Does this person have difficulty dressing [...] shopping? No 09/06/2014 3:24 PM EDT Anjelica Clemons, DANIELA Because of a physical, menta l or [...] PM EDT) 09/04/2014 5:33 PM EDT Narrative [facility] - 09/04/2014 1:35 PM EDT Explant device and leads due to infection us Irving Monte MD [facility] CARDIAC CATH ORDERAB LES Final Result Performing Organization Address City/State/[facility] Co de Phone Number [facility] [address] [place] [address] documented in this encounter Visit Diagnoses Not on filedocumented in this encounter Care Teams Network Specialist Relationship Specialty Start Date End Date Flakito Hsu MD PCP - General Family Medicine 09/03/14 documented as of this encounter
--- OUTSIDE RECORDS SUMMARY | 2025-01-10 10:32 | XMS_ITS | Encounter Summary ---
Author Organization [place] [address] Care Team Providers Care Marketing Program Coordinator Name Role Phone Flakito Hsu MD Primary Care Provider [phone] Encounter Details Date Type Department Care Team (Late st Contact Info) Description 09/04/2014 Orders Only [facility] [address] [facility] [address] [place] [address] Irving Monte MD [address] [phone] Social History Tobacco Use Types Packs/Day Years [...] CATH ORDERABLES Final Result Performing Organization Address City/State/[facility] Co de Phone Number [facility] [address] [place] [address] documented in this encounter Visit Diagnoses Not on filedocumented in this encounter Care Teams Marketing Program Coordinator Relationship Specialty Start Date End Date Flakito Hsu MD PCP - General Family Medicine 09/03/14 documented as of this encounter
[2025-01-11 09:14] LABS: Hepatitis B Surface Antigen Negative (Negative)
== END 2025-01-09 23:59 | disposition home or self-care (01) ==
LOC: LAB.DROPOF 01-10 10:29
PROVIDERS: PCP Family Medicine; Visit Provider Family Medicine
DX: K74.60 Unspecified cirrhosis of liver (principal); D64.9 Anemia, unspecified; Z11.59 Encounter for screening for other viral diseases
CPT/HCPCS: 80053; 83540; 83550; 85025; 86803; 87340; 87389